=== PATIENT | female | born 1990 | race Caucasian/White ===

== ENCOUNTER → 2021-09-11 12:00 | Outpatient (BNVA) | payer OTHER, SELFPAY | PROVIDERS: PCP Internal Medicine; Visit Provider Physician Assistant Surgical ==

== ENCOUNTER → 2021-10-01 07:30 | Outpatient (BNVA) | payer OTHER, SELFPAY | PROVIDERS: PCP Internal Medicine; Visit Provider Surgery ==

== ENCOUNTER 2021-10-14 07:09 | Outpatient (REF) | payer OTHER, SELFPAY ==
--- NOTE | ~2021-10-14 | XR_ITS ---
EXAMINATION: XR CHEST CLINICAL INFORMATION: Morbid obesity due to excess calories COMPARISON: None TECHNIQUE: 2 views of the chest were obtained. FINDINGS: The lungs are well expanded. There is no focal consolidation, edema, or effusion. No pneumothorax. The cardiomediastinal silhouette is within normal limits. No acute osseous abnormality. XR/XR chest 2V IMPRESSION: No acute pulmonary finding.
[2021-10-14 07:24] LABS: MANUAL DIFF FLAG NO
--- NOTE | 2021-10-14 07:40 | ECG_ITS ---
Test Reason : e66.1 Blood Pressure : / mmHG Vent. Rate : 051 BPM Atrial Rate : 051 BPM P-R Int : 138 ms QRS Dur : 098 ms QT Int : 464 ms P-R-T Axes : -10 019 007 degrees QTc Int : 427 ms Sinus bradycardia Otherwise normal ECG No previous ECGs available Referred By: Rodger Reddy Electronically Signed By:ABDI CABAN
[2021-10-14 07:48] LABS: Basophils Percent Auto 0.3 % (0-2); Eosinophils Absolute Auto 0.3 X10*3/uL (0.0-0.4); Hematocrit 35.3 % (37.0-47.0); Hemoglobin 11.8 g/dl (12.0-16.0); Imm Gran Abs Auto 0.03 X10*3/uL (0.00-0.03); Imm Gran Pct Auto 0.5 % (0.0-0.4); Lymphocytes Absolute Auto 2.9 X10*3/uL (1.2-4.9); Lymphocytes Percent Auto 46.3 % (20-40); Mean Corpuscular HGB Conc 33.4 g/dl (31.0-35.0); Mean Corpuscular Volume 89.8 fL (80.0-98.0); Mean Platelet Volume 9.6 fL (9.4-12.3); Monocytes Absolute Auto 0.4 X10*3/uL (0.1-1.2); Monocytes Percent Auto 6.4 % (2-11); Neutrophils Absolute Auto 2.7 x10*3/uL (2.0-8.3); Neutrophils Percent Auto 42.5 % (45-73); Platelet Count 271 X10*3/uL (160-400); Red Blood Count 3.93 X10*6/uL (4.20-5.50); Red Cell Distribution Width 12.4 % (11.0-16.0); White Blood Count 6.3 X10*3/uL (4.8-10.8)
[2021-10-14 07:49] LABS: Estimated Average Glucose 97 mg/dL
[2021-10-14 08:11] LABS: Alanine Aminotransferase 27 U/L (0-31); Alkaline Phosphatase 57 U/L (39-117); Anion Gap 8 (12-20); Aspartate Amino Transferase 17 U/L (5-31); Bilirubin Total 0.4 mg/dL (0.0-1.0); Blood Urea Nitrogen 13 mg/dL (9-16); C Reactive Protein 0.11 mg/dL (< or = 0.50); Calcium 9.3 mg/dL (8.4-10.2); Carbon Dioxide 26 mmol/L (22-29); Chloride 108 mmol/L (96-108); Cholesterol 130 mg/dL; Estimated Glomerular Filt Rate > 60; Glucose Random 97 mg/dL (60-115); HDL Cholesterol 25 mg/dL; Iron 57 mcg/dL (30-160); LDL Cholesterol Calculated 64 mg/dl; Percent Iron Saturation 16 % (15-50); Potassium 4.1 mmol/L (3.3-5.1); Sodium 138 mmol/L (135-145); Total Iron Binding Capacity 359 mcg/dL (228-428); Total Protein 6.5 g/dL (6.5-8.0); Triglycerides 206 mg/dL; Unsaturated Iron Binding 302 ug/dL
[2021-10-14 08:20] LABS: Ferritin 27 ng/mL (10-122); Insulin 18 uU/mL (2-29); TSH reflex Free T4 1.17 uIU/mL (0.32-4.0); Vitamin D 25-OH Total 25.6 ng/mL (>30)
[2021-10-14 09:03] LABS: Folate > 20.0 ng/mL (> or = 4.0); Vitamin B12 597 pg/mL (200-900)
[2021-10-14 14:00] LABS: H Pylori Breath Test Negative (Negative)
[2021-10-15 13:31] LABS: Calcium (PTHI) 9.4 mg/dL (8.6-10.2); PTHI 21 pg/mL (14-64)
[2021-10-18 03:07] LABS: Zinc 64 mcg/dL (60-130)
[2021-10-18 10:16] LABS: Vitamin B1 16 nmol/L (8-30)
[2021-10-18 19:06] LABS: Vitamin A 58 mcg/dL (38-98)
== END 2021-10-14 07:10 | disposition home or self-care (01) ==
LOC: HO.XRAY 07:09
PROVIDERS: Visit Provider Surgery
DX: E11.9 Type 2 diabetes mellitus without complications (principal); E66.01 Morbid (severe) obesity due to excess calories; I10 Essential (primary) hypertension
CPT/HCPCS: 36415; 71046; 80053; 80061; 82306; 82607; 82728; 82746; 83013; 83036; 83525; 83540; 83970; 84425; 84443; 84590; 84630; 85025; 86140; 93005

== ENCOUNTER → 2021-11-07 08:28 | Outpatient (BNVA) | payer OTHER, SELFPAY | PROVIDERS: PCP Internal Medicine; Visit Provider Dietitian, Registered | DX: E66.01 Morbid (severe) obesity due to excess calories (principal); Z68.41 Body mass index [BMI] 40.0-44.9, adult; E11.9 Type 2 diabetes mellitus without complications; Z71.3 Dietary counseling and surveillance | CPT/HCPCS: 97802 ==

== ENCOUNTER → 2021-11-08 07:30 | Outpatient (BNVA) | payer OTHER, SELFPAY | PROVIDERS: PCP Internal Medicine; Visit Provider Surgery ==

== ENCOUNTER → 2021-12-04 10:43 | Outpatient (BNVA) | payer OTHER, SELFPAY | PROVIDERS: PCP Internal Medicine; Visit Provider Physician Assistant ==

== ENCOUNTER → 2021-12-11 08:16 | Outpatient (BNVA) | payer OTHER, SELFPAY | PROVIDERS: PCP Internal Medicine; Visit Provider Surgery ==

== ENCOUNTER 2021-12-16 07:54 | Outpatient (REF) | payer OTHER, SELFPAY ==
--- NOTE | ~2021-12-16 | US_ITS ---
EXAMINATION: US COMPLETE ABDOMEN WITH LIVER ELASTOGRAPHY CLINICAL INFORMATION: Obesity COMPARISON: None. TECHNIQUE: Real-time imaging of the abdominal viscera. Noninvasive ultrasound liver fibrosis assessment is performed using Lore ElastPQ point quantification shear wave elastography (2D-SWE) with a C5-2 MHz transducer. Multiple elastography samples are obtained. FINDINGS: PANCREAS: Not well visualized due to bowel gas ABDOMINAL AORTA: Not well visualized due to bowel gas INFERIOR VENA CAVA: Visualized portions are normal. LIVER: Normal. The liver demonstrates normal size, contour and echogenicity. No focal lesion or intrahepatic biliary duct dilatation. The right lobe measures 18 cm in length. The left lobe measures 12 cm in length. Portal flow is normal/hepatopedal Shear wave liver elastography median stiffness is 1.2 m/s (reference: normal median stiffness is 1.3 m/s or less). IQR/median stiffness to assess sampling precision is 0.18 (reference: good quality data set is IQR/median stiffness of 0.15 or less). GALLBLADDER: The gallbladder is normal in size. There are small echogenic densities adjacent to the gallbladder wall but do not or shadow probably representing small gallbladder wall polyps. The largest measures 6 mm near the neck of the gallbladder. No definite gallstones are seen. The gallbladder wall is normal. COMMON BILE DUCT: Not well visualized due to bowel gas RIGHT KIDNEY: Normal. No hydronephrosis. No renal calculi or focal parenchymal lesions. The kidney measures 11 cm in maximum dimension. LEFT KIDNEY: Normal. No hydronephrosis. No renal calculi or focal parenchymal lesions. The kidney measures 11 cm in maximum dimension. SPLEEN: Normal. The spleen measures 12 cm in maximum dimension. FREE FLUID: None. US/US abdomen comp w elastography IMPRESSION: 1. Impression: Limited exam due to bowel gas. The pancreas, aorta and common bile duct are not well seen. Probable gallbladder wall polyps, largest measuring 6 mm. Ultrasound follow-up in 6-12 months recommended. 2. Liver elastography: Slightly limited due to sampling error. Liver stiffness is not elevated. REFERENCE: Society of Radiologists in Ultrasound Liver Stiffness Thresholds (2020): LIVER STIFFNESS THRESHOLDS: *Liver Stiffness equal or less than 1.3 m/s: High probability of being normal. *Liver Stiffness less than 1.7 m/s: In the absence of other known clinical signs, rules out compensated advanced chronic liver disease. *Liver Stiffness 1.7-2.1 m/s: Suggestive of compensated advanced chronic liver disease but need further test for confirmation. *Liver Stiffness over 2.1 m/s: Rules in compensated advanced chronic liver disease. *Liver Stiffness over 2.4 m/s: Suggestive of clinically significant portal hypertension. QUALITY OF DATA SET: *IQR/Median value equal or less than 0.15 implies a quality data set. *IQR/Median value over 0.15 implies a poor quality data set. SIGNIFICANT CHANGE FROM PRIOR EXAM: Significant change if liver stiffness measurement is 10% or greater from prior exam. OTHER CONSIDERATIONS: The stage of liver fibrosis may be overestimated in the setting of acute hepatitis, liver inflammation, elevated liver function tests, hepatic vascular congestion, obstructive cholestasis, non-fasting state, and infiltrative diseases such as amyloidosis and lymphoma. In some patients with NAFLD, the liver stiffness thresholds for compensated advanced chronic liver disease may be lower. In causes other than viral hepatitis and NAFLD, liver stiffness thresholds are not well established.
--- NOTE | ~2021-12-16 | FL_ITS ---
EXAMINATION: XR FLUOROSCOPY UPPER GI WITH AIR CLINICAL INFORMATION: Obesity. COMPARISON: None. TECHNIQUE: Upper GI was performed using thin and thick barium and effervescent granules. FINDINGS: Esophageal motility is normal. No gastroesophageal reflux or hernia is seen. The stomach and duodenum are normal appearing. No fold thickening, mass, stricture or ulcer is seen. FLUOROSCOPY TIME: 0.5 minutes DOSE AREA PRODUCT: 5 Gy-cm2 SAVED IMAGES: 23 saved fluoroscopic images and 2 overhead images. FL/FL upper GI w air IMPRESSION: Unremarkable examination.
== END 2021-12-16 07:55 | disposition home or self-care (01) ==
LOC: HO.US 07:54
PROVIDERS: Visit Provider Surgery
DX: E66.01 Morbid (severe) obesity due to excess calories (principal); E11.9 Type 2 diabetes mellitus without complications; I10 Essential (primary) hypertension
CPT/HCPCS: 74246; 76705; 76981

== ENCOUNTER → 2021-12-30 10:28 | Outpatient (BNVA) | payer OTHER, SELFPAY | PROVIDERS: PCP Internal Medicine; Visit Provider Surgery | DX: Z13.89 Encounter for screening for other disorder (principal) ==

== ENCOUNTER → 2021-12-31 10:03 | Outpatient (BNVA) | payer OTHER, SELFPAY | PROVIDERS: PCP Internal Medicine; Visit Provider Surgery | DX: Z13.89 Encounter for screening for other disorder (principal) ==

== ENCOUNTER 2022-01-01 06:02 | Day surgery (SDC) | payer OTHER, SELFPAY ==
[2021-12-27 14:18] VITALS: BMI 38.7
--- NOTE | 2021-12-28 00:03 | MHC.SHP ---
Pre-Procedural Eval Section A Date of Service: 12/28/21 The patient is an INPATIENT: No The History & Physical has been completed within 30 days and I have reviewed it.: Yes Section B Chief Complaint: obesity Relevant Family History (Specify if Yes): No Relevant Social History: None Present Medications: None Medical History: No relevant PMH History of Previous Operations: No relevant previous surgery Allergies: Allergies Allergy/AdvReac Type Severity Reaction Status Date / Time No Known Allergies Allergy Verified 12/27/21 14:17 Review of Systems Sugical H&P ROS: Negative: Constitution, Cardiovascular, Respiratory, Neurological, Psychiatric, Hem-Onc, Allergic/Immunologic, Gastrointestinal, Genitourinary, Musculoskeletal, Integumentary, Endocrine and Eyes/Ears/Nose/Throat Exam Surgical H&P Exam: Normal: HEENT, Normal: Heart, Normal: Lungs, Normal: Extremities, Normal: Abdomen, Normal: Skin and Normal: Neurological Plan Diagnosis/Plan: Unchanged I have reviewed the history and physical and performed a pertinent physical examination on my patient. No changes have occurred unless specified.
[2021-12-30 10:21] LABS: MANUAL DIFF FLAG NO
[2021-12-30 10:48] LABS: Basophils Percent Auto 0.2 % (0-2); Eosinophils Absolute Auto 0.1 X10*3/uL (0.0-0.4); Eosinophils Percent Auto 1.4 % (0-4); Hematocrit 40.3 % (37.0-47.0); Hemoglobin 13.3 g/dl (12.0-16.0); Imm Gran Abs Auto 0.01 X10*3/uL (0.00-0.03); Imm Gran Pct Auto 0.2 % (0.0-0.4); Lymphocytes Absolute Auto 1.8 X10*3/uL (1.2-4.9); Lymphocytes Percent Auto 35.5 % (20-40); Mean Corpuscular Hemoglobin 30.2 pg (27.0-33.0); Mean Corpuscular Volume 91.4 fL (80.0-98.0); Mean Platelet Volume 10.3 fL (9.4-12.3); Monocytes Absolute Auto 0.3 X10*3/uL (0.1-1.2); Neutrophils Absolute Auto 2.8 x10*3/uL (2.0-8.3); Neutrophils Percent Auto 56.7 % (45-73); Platelet Count 229 X10*3/uL (160-400); Red Blood Count 4.41 X10*6/uL (4.20-5.50); Red Cell Distribution Width 11.9 % (11.0-16.0)
[2021-12-30 10:54] LABS: Estimated Average Glucose 94 mg/dL; Hemoglobin A1c % 4.9 %
[2021-12-30 10:58] LABS: INTERNATIONAL NORM RATIO 1.1 (0.9-1.1); Prothrombin Time 12.9 SEC (9.9-13.0)
[2021-12-30 11:01] LABS: Partial Thromboplastin Time 44.2 SEC (24.1-38.0)
[2021-12-30 11:16] LABS: Alanine Aminotransferase 18 U/L (0-31); Albumin Level 4.1 g/dL (3.5-5.0); Alkaline Phosphatase 55 U/L (39-117); Anion Gap 10 (12-20); Aspartate Amino Transferase 12 U/L (5-31); Bilirubin Total 1.1 mg/dL (0.0-1.0); Blood Urea Nitrogen 14 mg/dL (9-16); C Reactive Protein 0.17 mg/dL (< or = 0.50); Calcium 9.7 mg/dL (8.4-10.2); Carbon Dioxide 26 mmol/L (22-29); Chloride 106 mmol/L (96-108); Cholesterol 143 mg/dL; Creatinine Clr Calc Pharmacy 115.2; Estimated Glomerular Filt Rate > 60; Glucose Random 84 mg/dL (60-115); HDL Cholesterol 26 mg/dL; LDL Cholesterol Calculated 98 mg/dl; Potassium 4.1 mmol/L (3.3-5.1); Sodium 138 mmol/L (135-145); Total Protein 6.8 g/dL (6.5-8.0); Triglycerides 98 mg/dL
[2021-12-30 11:43] LABS: Insulin 9 uU/mL (2-29); TSH reflex Free T4 0.87 uIU/mL (0.32-4.0)
--- NOTE | 2021-12-31 08:14 | P.CONAN_ITS ---
Documented by User: Alexia Chairez NP 12/31/21 08:16 HPI - Anesthesia Eval Consult details Narrative: 31yo F for Gastrectomy Sleeve,EGD,poss diaphragmatic hernia,poss ventral hernia,poss open PMFSH Active Problems Active Problems: All Active Problems (Updated 12/11/21 @ 13:22 by Rodger Reddy MD) BMI 39.0-39.9,adult (Acute) Obesity (Acute) Iron deficiency (Acute) Nephrolithiasis (Acute) Non-insulin dependent type 2 diabetes mellitus (Acute) Hypertension (Acute) Morbid obesity (Acute) Past Medical History Medical History Hypertension Morbid obesity Nephrolithiasis Obesity Family History Family History (Updated 09/25/21 @ 13:38 by LUKE Ibrahim) Mother Hypertension Migraines Father Hypertension Diabetes Brother Bipolar 1 disorder Surgical History Surgical History Hx of wisdom tooth extraction Social History Social History (Updated 09/25/21 @ 13:39 by LUKE Ibrahim) Are you a primary acute care occupational therapist to a significant other at home: No Do you presently have visiting nurse or other home services: No Alcohol intake: current Alcohol intake frequency: holidays/special occasions only Patient Tobacco Use Status: Never used Tobacco Have you been hit, kicked, punched, or otherwise hurt by someone within the past year? If so, by whom?: No Are you DNR?: No Advance Directives: No Advance Directives Information Provided: Yes Advance Directives on File: No Recently lost weight without trying: No Patient : No FDLMP: 12/13/2021 : No Poor oral hygiene: No Meds Allergies Allergy/AdvReac Type Severity Reaction Status Date / Time No Known Allergies Allergy Verified 01/01/22 06:16 Home Medications Medication Instructions Recorded Confirmed Last Taken Type cholecalciferol (vitamin D3) 50 50 mcg PO DAILY 09/25/21 12/27/21 Unknown History mcg (2,000 unit) capsule multivitamin 1 tab PO DAILY 09/25/21 12/27/21 Unknown History Exam Exam Date and Time: December 31, 2021 0814 Height,Weight and Vital Signs: Height 5 ft 7 in Weight 112.037 kg Pertinent Lab Results Pertinent Lab Results: Laboratory Tests 12/30/21 12/30/21 12/30/21 10:20 10:20 10:20 WBC 5.0 RBC 4.41 Hgb 13.3 Hct 40.3 MCV 91.4 MCH 30.2 MCHC 33.0 RDW 11.9 Plt Count 229 MPV 10.3 Immature Gran % (Auto) 0.2 Neut % (Auto) 56.7 Lymph % (Auto) 35.5 Luna % (Auto) 6.0 Eos % (Auto) 1.4 Baso % (Auto) 0.2 Lymph # (Auto) 1.8 Luna # (Auto) 0.3 Eos # (Auto) 0.1 Baso # (Auto) 0.0 Abs Immat Gran (auto) 0.01 Absolute Neuts (auto) 2.8 Absolute Nucleated RBC 0.000 Nucleated RBC % (auto) 0.0 PT 12.9 INR 1.1 APTT 44.2 H Sodium 138 Potassium 4.1 Chloride 106 Carbon Dioxide 26 Anion Gap 10 L BUN 14 Creatinine 0.93 Estim Creat Clear Calc 115.2 Estimated GFR > 60 Random Glucose 84 Estimat Average Glucose Hemoglobin A1c % Insulin Level 9 Calcium 9.7 Total Bilirubin 1.1 H AST 12 ALT 18 Alkaline Phosphatase 55 C-Reactive Protein 0.17 Total Protein 6.8 Albumin 4.1 Triglycerides 98 Cholesterol 143 LDL Cholesterol, Calc 98 HDL Cholesterol 26 TSH 0.87 Blood Type Antibody Screen 12/30/21 12/30/21 10:20 10:20 WBC RBC Hgb Hct MCV MCH MCHC RDW Plt Count MPV Immature Gran % (Auto) Neut % (Auto) Lymph % (Auto) Luna % (Auto) Eos % (Auto) Baso % (Auto) Lymph # (Auto) Luna # (Auto) Eos # (Auto) Baso # (Auto) Abs Immat Gran (auto) Absolute Neuts (auto) Absolute Nucleated RBC Nucleated RBC % (auto) PT INR APTT Sodium Potassium Chloride Carbon Dioxide Anion Gap BUN Creatinine Estim Creat Clear Calc Estimated GFR Random Glucose Estimat Average Glucose 94 Hemoglobin A1c % 4.9 Insulin Level Calcium Total Bilirubin AST ALT Alkaline Phosphatase C-Reactive Protein Total Protein Albumin Triglycerides Cholesterol LDL Cholesterol, Calc HDL Cholesterol TSH Blood Type O Positive Antibody Screen NEGATIVE Narrative Narrative: EKG 10/2021 Vent. Rate : 051 BPM ? ? Atrial Rate : 051 BPM ?? P-R Int : 138 ms? QRS Dur : 098 ms ? ? QT Int : 464 ms ? ? ? P-R-T Axes : -10 019 007 degrees ?? QTc Int : 427 ms ? Sinus bradycardia Otherwise normal ECG No previous ECGs available Assessment and Plan Assessment Anesthesia Assessment: Chart Reviewed Documented by User: Gladis Soliman MD 01/01/22 07:54 PMFSH Past Medical History Medical History Hypertension Morbid obesity Nephrolithiasis Obesity Family History Family History (Updated 09/25/21 @ 13:38 by LUKE Ibrahim) Mother Hypertension Migraines Father Hypertension Diabetes Brother Bipolar 1 disorder Family history of problems with anesthesia: No Surgical History Surgical History Hx of wisdom tooth extraction History of Problems with Anesthesia: No Social History Social History (Updated 09/25/21 @ 13:39 by LUKE Ibrahim) Are you a primary acute care occupational therapist to a significant other at home: No Do you presently have visiting nurse or other home services: No Alcohol intake: current Alcohol intake frequency: holidays/special occasions only Patient Tobacco Use Status: Never used Tobacco Have you been hit, kicked, punched, or otherwise hurt by someone within the past year? If so, by whom?: No Are you DNR?: No Advance Directives: No Advance Directives Information Provided: Yes Advance Directives on File: No Recently lost weight without trying: No Patient : No FDLMP: 12/13/2021 : No Poor oral hygiene: No Meds Allergies Allergy/AdvReac Type Severity Reaction Status Date / Time No Known Allergies Allergy Verified 01/01/22 06:16 Home Medications Medication Instructions Recorded Confirmed Last Taken Type cholecalciferol (vitamin D3) 50 50 mcg PO DAILY 09/25/21 12/27/21 Unknown History mcg (2,000 unit) capsule multivitamin 1 tab PO DAILY 09/25/21 12/27/21 Unknown History Exam Airway Mallampati Class: III TM Dist: >3cm Neck ROM: Full Assessment and Plan Assessment Anesthesia Assessment: Anesthesia Plan Discussed Final Anesthetic Review Family History of Problems with Anesthesia: No History of Problems with Anesthesia: No NPO: Yes ASA Class: III Final Preanesthetic Review: No Changes in Pt Med Stat, Meds/Allgs Chart Reviewed, Consent Obtained/Reviewed and Anes Risks/Benef Reviewed Patient Risk: Intermediate Procedure Risk: Intermediate Anesthetic Plan Anesthetic Plan: GA Disposition: Standard PACU
[2021-12-31 13:55] LABS: COVID-19 Test Negative (Negative); IDNOW Serial# 55D5AD1C
[2022-01-01] VITALS (14 sets, daily range): BP systolic 119–145; BP diastolic 62–90; PULSE 2–62; RESP 12–18; TEMP 36.3–37.3; O2SAT 96–100
[2022-01-01 06:37] LABS: UPreg QC Valid YES; Urine Pregnancy NEGATIVE (NEGATIVE)
[2022-01-01 06:39] LABS: Glucose, Whole Blood 73 mg/dL (60-115)
[2022-01-01] MEDS: Lactated Ringers 1,000 ML 999 ML IV (06:50)
[2022-01-01] MEDS: Lactated Ringers 1,000 ML 100 ML IVCONT ×3 (06:50→21:47)
[2022-01-01] MEDS: ceFAZolin Sodium/Dextrose,Iso 2 GM/50 ML PIGGYBACK IV ×2 (07:53→14:14)
--- NOTE | 2022-01-01 10:01 | PM.OP ---
Brief Operative Note Date of Service: 01/01/22 Pre-op diagnosis: Severe obesity with comorbidities Post-op diagnosis: same Procedure: INITIAL PATIENT BMI ON PRESENTATION AT OUR OFFICE: 44.9 kg/m2 LAST BMI BEFORE SURGERY: 38.7 kg/m2 COMORBIDITIES: hypertension, nephrolithiasis, non-insulin dependent diabetes ?The patient presented to the Weight Management Program with significant obesity that was negatively impacting the patient's comorbidities as listed above.? The program is a phased program with a special focus on preoperative medical weight management to promote substantial weight loss and prepare the patients for the second phase of the program: bariatric surgery. The patient participated in an intensive weekly lifestyle ?intervention and exercise program during which the patient ?has lost between the initial office visit and the last preoperative visit 39.9 lbs, or 13.9% of initial actual body weight. It was deemed appropriate for the patient to now have bariatric surgery. In light of the current Covid-19 pandemic and the well documented strong association of obesity and increased risk of worse outcomes if infected with Covid-19 (REFERENCES:https://pubmed.ncbi.nlm.nih.gov/92833972/,?https://pubmed.ncbi.nlm.nih.gov/04846496/), any delay in undergoing bariatric surgery may lead to the patient's worsening health condition and increased?risk of more severe Covid-19 disease if infected. In addition a recent?study from [facility] published in [employer] [facility] on 09/30/2021 ([email or web address]) found that, among patients with obesity, substantial weight loss achieved with surgery was associated with improved outcomes of COVID-19 infection. The findings suggest that obesity can be a modifiable risk factor for the severity of COVID-19 infection. In addition, the patient met the BMI-criteria for bariatric surgery based on the BMI on initial presentation. The patient should not be penalized for achieving such weight loss because ?it is not sustainable long-term without surgical intervention and it was achieved in preparation for bariatric surgery ?under my direction and based on my published research ([email or web address] and?[email or web address].soard.org/article/[email or web address])12677-X/pdf) ?that a 10% preoperative weight loss improves long-term weight loss after surgery and reduces perioperative complications.? Insurance carriers such as [facility] have endorsed my recommendations ?and have included in their policies criteria to include a 10% preoperative weight loss requirement. PROCEDURE: Esophago-gastroscopy, laparoscopic sleeve gastrectomy and laparoscopic gastropexy INDICATIONS: This is a 31 year-old female who was electively scheduled for laparoscopic, possibly open sleeve gastrectomy. The risks and complications of the procedure were discussed with the patient in advance, particularly the possibility of ; pulmonary embolism; staple line leak; bleeding; GERD; cardiac, pulmonary, or renal complications; as well as long-term problems such as insufficient weight loss, vitamin deficiency, strictures, or ulcers. The patient understood all the risks, and was in agreement to proceed with surgery. DESCRIPTION OF PROCEDURE: After informed consent was obtained from the patient, the patient was given preoperative antibiotics, and was transferred to the operating room. After successful induction of general anesthesia, pneumatic compression devices were placed on both lower extremities. An upper endoscopy was performed next. The oropharynx and esophagus appeared to be within normal limits. There was no diaphragmatic hernia present consistent with the findings of the preoperative upper GI. The stomach was entered. Then after all fluid and air were suctioned and the stomach was fully decompressed, the scope was withdrawn and secured in the mid esophagus. The patient was then prepped and draped in the usual sterile manner, and abdominal access was established at the right upper quadrant with the Rad technique. A 12 mm blunt port was inserted, and the abdomen was insufflated with CO2 to a pressure of 15 mmHg. Under direct visualization, additional ports were placed, specifically two 5 mm Versi-step ports to the left upper quadrant, and a 5 mm Versi-Step port to the right upper quadrant. 1% lidocaine plain was used to infiltrate all port sites as well as all fascia defects. Following that, the patient was placed in a steep reverse Trendelenburg position. An additional 5 mm port was placed to the right flank for the Mediflex retractor that was used to retract the left lobe of the liver. The gastro-esophageal fat pad was opened with the ultrasonic device (Thsandraerbeat, Olympus) and the anterior esophagus and hiatus were exposed. The angle of His was opened with the ultrasonic device the fundus of the stomach from any diaphragmatic and splenic attachments. I then opened the gastrocolic ligament between the transverse colon and the greater curvature of the stomach with the ultrasonic device to enter the lesser sac and facilitate the ligation of the short gastric vessels. I started at a mid-point along the greater curvature and using the Thunderbeat, all short gastric vessels were divided all the way to the angle of His until the left sandeep was completely dissected at its entirety. I then divided the gastro-colic ligament distally to a distance of about 3-4 cm proximal to the pylorus. The stomach was then divided transversely with one Endo LEENA-45 purple, one LEENA-45 orange load and four LEENA-60 articulating orange loads using the AEON stapler and loads. Every effort was made that the gastric sleeve had a tubular shape and an even caliber throughout. Once the sleeve resection was completed, the staple line of the gastric sleeve was reinforced with Hemoclips. The resected stomach was retrieved without difficulty from the Rad port. A gastropexy was then performed in order to prevent postoperative GERD and partial gastric volvulus. Several interrupted 2.0 Surgidac sutures were placed between the sleeve's staple line and the previously divided greater omentum and gastro-colic ligament using the Endo-Stitch device. ?An upper endoscopy was performed. There was no narrowing at the GE junction. The scope was easily advanced all the way to the pylorus which was clearly visualized. There was no narrowing anywhere and the sleeve's caliber was even throughout. The sleeve's staple line was inspected and there was no evidence of ischemia, bleeding or dehiscence. At that point the gastroscope was withdrawn from the patient?s mouth while we were decompressing the bowel and the stomach from any remaining air. I looked into the lesser sac to see how the sleeve was situating and it was situating well. There was no bleeding from the staple line, spleen, or short gastric vessels. The Mediflex retractor was removed, and the undersurface of the liver was inspected and there was no bleeding. The patient was placed in supine position. I closed the fascial defect of the 12 mm port site with a figure of eight #1 Polysorb suture. Then 100 cc 0.25 % Marcaine plain with 10 mg of Dexamethasone were used to infiltrate the fascial closure as well as all skin incisions. At this point, the abdomen was deflated, all ports were removed under direct vision, and no bleeding was noted from any of the port sites. The skin incisions were irrigated with saline and were closed with 4-0 absorbable monofilament sutures. Steri-Strips and OpSites were used to cover all incisions. The patient was extubated and was transferred in stable condition to the recovery room for further care. I was present and performed all wasserman parts of the procedure. Mr Johnson was the airplane first officer. There were no residents to assist with this case. Riky Reddy MD, PhD, FACS Surgeon: Rodger Reddy MD Anesthesia: GETA, local and other (TAP block) Was an Mixer Attendant used for this Procedure?: Yes Mixer Attendant: Bg Johnson Estimated blood loss (mL): 10 IV fluids (mL): 2,500 Urine output (mL): 0 (No Carter to gravity) Pathology: other (Stomach) Condition: stable Disposition: PACU
--- NOTE | 2022-01-01 10:06 | PM.DS ---
DS: Providers Provider Date of Service: 01/02/22 Primary care physician: Unknown Physician DS: Summary Hospital Course Hospital Course: ADMITTING DIAGNOSIS: morbid obesity, HTN, ? DISCHARGE DIAGNOSIS: same, s/p laparoscopic sleeve gastrectomy ? PAST SURGICAL HISTORY: ? PROCEDURE: upper endoscopy, laparoscopic sleeve gastrectomy ? DISCHARGE SUMMARY: ? History of Present Illness: ? The patient is a?31 year-old woman with a BMI of?44.9 kg/m2 and associated co-morbidities as described above. The patient had extensive work-up,lost?35.4 lbs preoperatively and was electively scheduled for laparoscopic, possible open sleeve gastrectomy and gastropexy. Risks and complications of the surgery were discussed with the patient in advance, particularly the possibility of , pulmonary embolism, anastomotic leak, bleeding, bowel injury, GERD, cardiac, renal or pulmonary complications. The patient understood all the risks and was in agreement with the surgical plan. ? Hospital Course: ? The patient underwent an uneventful laparoscopic sleeve gastrectomy with gastropexy on the day of admission. Postoperatively, the patient was transferred to the surgical floor. The patient received IV Acetaminophen and IV dilaudid for pain control. Patient was started on bariatric phase 1 diet POD #0. On postoperative day one, the patient was feeling well without nausea, vomiting, fevers, or tachycardia. The patient had some mild incisional pain and the abdomen was soft. ? On the morning of postoperative day one, the patient was continued on 1 ounce of water or ice every half hour. During the day, the patient did fairly well, having some incisional pain, but able to ambulate adequately and to tolerate liquids well. ? Since the patient is doing well, we decided that the patient was ready to be discharged. The patient was given instructions to follow-up with me next week and to call my office for any fever over 101, persistent abdominal pain, nausea, vomiting, GERD, symptoms of DVT such as calf tenderness, or leg swelling, or pulmonary embolism such as chest pain or shortness of breath. The patient was also instructed to drink 40-60 ounces of liquids per day using the 1-ounce cups. The patient had been given prescriptions for Tylenol for pain, Zofran prn for nausea, and pantoprazole and carafate previously. The patient was encouraged to ambulate and use the incentive spirometer. The patient was allowed to shower, but no baths, and encouraged to stay active at home. All of these instructions were given to the patient personally. All questions were answered and the patient understood all instructions, the instructions were also given to the patient in print. Time Spent with Patient Time attestation: Total time spent providing and/or coordinating discharge services: Discharge coordination time: Less than 30 minutes Quality: Stroke Does the patient have a stroke diagnosis?: No Physical Exam Vital Signs: Vital Signs: Last Vital Signs Temp 97.6 F 01/01/22 10:01 Pulse 59 01/01/22 10:01 Resp 12 01/01/22 10:01 BP 145/79 H 01/01/22 10:01 Pulse Ox 100 01/01/22 10:01 BMI result Body Mass Index 38.7 DS: Data Data Completed and Pending Pending studies at discharge: Pending at discharge 01/01/22 09:17 Surgical [PTH] Routine Labs on day of discharge: Laboratory Results - last 24 hr 12/31/21 01/01/22 01/01/22 13:30 06:15 06:35 POC Glucose 73 Urine Test NEGATIVE COVID-19 ([facility]) Negative COVID-19 Clin Com See Note Discharge Plan Discharge Patient Disposition: Home, Self-Care Referrals: Physician,Unknown J [Primary Care Provider] - 1 Week Discharge Medications: Continued pantoprazole 40 mg tablet,delayed release (DR/EC) 40 mg PO DAILY Qty: 30 2RF sucralfate 100 mg/mL suspension 10 ml PO BID Qty: 400 2RF ondansetron HCl 4 mg tablet 4 mg PO Q12H Qty: 20 0RF Discontinued Vitron-C 65 mg iron- 125 mg tablet,delayed release (DR/EC) 1 tab PO DAILY Qty: 30 2RF Rx Instructions: swallow whole; do not chew/break/dissolve/open multivitamin Tablet 1 tab PO DAILY 0RF cholecalciferol (vitamin D3) 50 mcg (2,000 unit) capsule 50 mcg PO DAILY 0RF polyethylene glycol 3350 [Miralax] 17 gram powder in packet 17 g PO DAILY Qty: 14 0RF Rx Instructions: Mix each packet with 8oz of water and do 7 packets 2 days prior to surgery date and another 7 packets one day prior to surgery date Discharge Orders: Discharge Order (Routine); Ordered 01/02/22 Ordered By: Rodger Reddy Activity Restrictions/Additional Instructions: No tub baths, sex or returning to work until discussed at first post op appointment. No exercise, alcohol, tobacco or illegal drug use. Continue to use incentive spirometer hourly while awake. Walk in home for 5- 10 minutes every 2 hours during the first week. Follow all instructions in the bariatric handbook and call with any questions.Discharge Instructions 1. Please call your doctor or come back to the emergency room should any new symptoms arise. 2. You will receive a courtesy call from [facility] 24-48 hours after discharge. 3. Activity: abstain from alcohol, practice limited stair climbing, no bending, no driving, no exercise, no illicit substances, no lifting, no sex, no tub bath, no work. 4. Diet: continue as discussed with Dr. Reddy. 5. Dressing Change/Wound Care: Your incision is covered by clear bandages and guaze underneath. If the area is tender, you may apply an ice pack for short intervals (no more than 20 minutes on, followed by at least 20 minutes off). Do not apply heat. Do not use creams, lotions, or topical antibiotics unless instructed to do so by your surgeon. These can cause infection or allergic reaction. 6. Call your doctor if: - Your temperature exceeds 101.5 F - You experience excessive pain or swelling - You have an unexpected reaction to medication - You have excessive bleeding - You experience continued vomiting/nausea - Your incision begins to separate - Your incision shows signs of infection such as increased redness, swelling, excessive pain, heat, or drainage (light blood or clear fluid is normal) 7. General instructions: No lifting greater than 5 lbs for the next 4 weeks[address] driving within 24 hours of taking narcotic pain medications. If you do not move your bowels in the next 2 days, please take milk of magnesia over the counter. Please follow the post op diet and do not advance your diet until you are seen in the office in about 2 weeks. Please walk around your home every hour or two to prevent blood clots from forming in your legs. You do not need to wake from sleeping to walk. Please sleep in a bed or couch to prevent kinking at the hips and knees. Please take your incentive spirometer (your lung tank car loader) home with you and use it for the next few days to prevent pneumonias. You may shower, no hot tubs, baths or swimming pools. Please call the office with any questions or concerns such as increasing abdominal pain, fever, chills, shortness of breath, chest pain, leg pain or swelling, or redness or drainage from your incisions. Please stay on stage 3 diet which includes sugar free clear liquids such as ice pops and jello and broth and crystal light. Avoid all carbonation. Please drink 3 protein shakes with at least 25-30 grams of protein daily or 3 of the Celebrate 4:1 shakes which can be purchased in our office. The Celebrate shakes have all of the bariatric vitamins you need if you consume these shakes. If you are drinking other protein shakes, you will need to purchase the Celebrate multivitamins and calcium that we provide in the office (they will provide all the vitamins you need). Please make sure you are consuming at least 40-60 ounces of water in addition to your 3 protein shakes daily. Do not hesitate to contact the office with any questions at . The patient's medical history has been reviewed and they are considered low risk for post op DVT and therefore DVT prophylaxis is not considered necessary. Travel after surgery was reviewed. The patient has not disclosed any travel plans during the first 30 days after surgery and they have been advised that within the first 30 days after surgery any bus, plane, train or car travel over 2 hours in duration is contraindicated due to the possibility of developing blood clots from immobility. Any travel, needs to include periods of ambulation of 10 minutes in duration every 2 hours.? The patient was instructed to discuss any plans for travel during this period with their bariatric surgeon. Discharge Date/Time: 01/02/22 09:55
--- NOTE | 2022-01-01 10:09 | PM.PNGS ---
Subjective Subjective Date of Service: 01/02/22 Interval history: Patient has mild incisional pain, but was able to ambulate and use the incentive spirometer. She is tolerating phase 1 bariatric diet Physical Exam Vital Signs: Vital Signs: Last Vital Signs Temp 97.6 F 01/01/22 10:01 Pulse 56 01/01/22 10:06 Resp 14 01/01/22 10:06 BP 134/84 01/01/22 10:06 Pulse Ox 100 01/01/22 10:06 BMI result Body Mass Index 38.7 GI: Inspection: Yes normal to inspection, Yes incision (clean, dry and intact) and Yes obesity Extrem: Right lower extremity: normal to inspection (no calf tenderness) Left lower extremity: normal to inspection (no calf tenderness) Objective Data Active Medications Famotidine (Famotidine/Pf 20 Mg/2 Ml Vial) 20 mg IVPUSH BID DARRION Hydromorphone HCl (Hydromorphone Hcl 0.5 Mg/0.5 Ml Syringe) 0.5 mg IVPUSH Q5M PRN; Protocol PRN Reason: Pain, Severe (Pain Scale 7-10) Lactated Ringer's (Lr) 1,000 mls @ 100 mls/hr IVCONT .Q10H DARRION Last Admin: 01/01/22 06:50 Dose: 100 mls/hr Documented by: MEEK Metoclopramide HCl (Metoclopramide Hcl 10 Mg/2 Ml Vial) 10 mg IVPUSH Q6H PRN PRN Reason: Nausea Ondansetron HCl (Ondansetron Hcl 4 Mg/2 Ml Vial) 4 mg IVPUSH ONCE PRN PRN Reason: Nausea and Vomiting Labs CBC & Chem 7: 01/02/22 06:08 01/02/22 06:08 Labs: Laboratory Results - last 24 hr 12/31/21 01/01/22 01/01/22 13:30 06:15 06:35 POC Glucose 73 Urine Test NEGATIVE COVID-19 ([facility]) Negative COVID-19 Clin Com See Note Procedures Date of Service Date of Service: 01/02/22 Progress Note: A&P Assessment and plan (1) S/P laparoscopic sleeve gastrectomy: Status: Acute Assessment and Plan: s/p laparoscopic sleeve gastrectomy and gastropexy Doing well Check am labs. If OK, will discharge home? (2) Obesity: Status: Acute (3) BMI 39.0-39.9,adult: Status: Acute Fall Risk Details Current Medications: Current Medications Famotidine (Famotidine/Pf 20 Mg/2 Ml Vial) 20 mg IVPUSH BID DARRION Hydromorphone HCl (Hydromorphone Hcl 0.5 Mg/0.5 Ml Syringe) 0.5 mg IVPUSH Q5M PRN; Protocol PRN Reason: Pain, Severe (Pain Scale 7-10) Lactated Ringer's (Lr) 1,000 mls @ 100 mls/hr IVCONT .Q10H DARRION Last Admin: 01/01/22 06:50 Dose: 100 mls/hr Documented by: Metoclopramide HCl (Metoclopramide Hcl 10 Mg/2 Ml Vial) 10 mg IVPUSH Q6H PRN PRN Reason: Nausea Ondansetron HCl (Ondansetron Hcl 4 Mg/2 Ml Vial) 4 mg IVPUSH ONCE PRN PRN Reason: Nausea and Vomiting Time Spent With Patient Time: Total time spent is greater than 50% in coordination of care (as documented) at patient's floor/unit and/or counseling patient: Quality Stroke Does the patient have a stroke diagnosis?: No VTE Prior VTE?: No VTE Risk Level:: Surgical - moderate VTE Device Contraindication: N/A - Device Ordered VTE Drug Contraindication: Treatment Not Indicated
[2022-01-01] MEDS: Famotidine/PF 20 MG/2 ML VIAL IVPUSH ×2 (10:13→21:47)
[2022-01-01 10:29] LABS: Hematocrit 38.3 % (37.0-47.0); Hemoglobin 12.8 g/dl (12.0-16.0)
[2022-01-01 10:52] LABS: Anion Gap 14 (12-20); Blood Urea Nitrogen 9 mg/dL (9-16); Calcium 9.1 mg/dL (8.4-10.2); Carbon Dioxide 22 mmol/L (22-29); Chloride 105 mmol/L (96-108); Creatinine Clr Calc Pharmacy 111.6; Estimated Glomerular Filt Rate > 60; Glucose Random 144 mg/dL (60-115); Potassium 3.9 mmol/L (3.3-5.1); Sodium 137 mmol/L (135-145)
[2022-01-01] MEDS: Metoclopramide HCl 10 MG/2 ML VIAL IVPUSH ×2 (10:57→17:27)
[2022-01-01] MEDS: ondansetron HCL 4 MG/2 ML VIAL IVPUSH ×2 (13:32→21:47)
[2022-01-01] MEDS: 0.9 % Sodium Chloride Flush 3 ML SYRINGE IVFLUSH (21:47)
[2022-01-02 04:00] VITALS: BP 126/72; PULSE 56; RESP 14; TEMP 36.8; O2SAT 97
[2022-01-02] MEDS: Lactated Ringers 1,000 ML 100 ML IVCONT (06:00)
[2022-01-02] MEDS: ondansetron HCL 4 MG/2 ML VIAL IVPUSH (06:00)
[2022-01-02 06:30] LABS: MANUAL DIFF FLAG NO
[2022-01-02 06:48] LABS: Basophils Percent Auto 0.1 % (0-2); Eosinophils Percent Auto 0.1 % (0-4); Hematocrit 33.9 % (37.0-47.0); Hemoglobin 11.5 g/dl (12.0-16.0); Imm Gran Abs Auto 0.04 X10*3/uL (0.00-0.03); Imm Gran Pct Auto 0.5 % (0.0-0.4); Lymphocytes Absolute Auto 2.3 X10*3/uL (1.2-4.9); Lymphocytes Percent Auto 26.5 % (20-40); Mean Corpuscular HGB Conc 33.9 g/dl (31.0-35.0); Mean Corpuscular Hemoglobin 31.1 pg (27.0-33.0); Mean Corpuscular Volume 91.6 fL (80.0-98.0); Mean Platelet Volume 10.5 fL (9.4-12.3); Monocytes Absolute Auto 0.7 X10*3/uL (0.1-1.2); Monocytes Percent Auto 8.6 % (2-11); Neutrophils Absolute Auto 5.5 x10*3/uL (2.0-8.3); Neutrophils Percent Auto 64.2 % (45-73); Platelet Count 215 X10*3/uL (160-400); White Blood Count 8.6 X10*3/uL (4.8-10.8)
[2022-01-02 06:50] LABS: Anion Gap 12 (12-20); Blood Urea Nitrogen 8 mg/dL (9-16); Calcium 8.7 mg/dL (8.4-10.2); Carbon Dioxide 22 mmol/L (22-29); Chloride 108 mmol/L (96-108); Estimated Glomerular Filt Rate > 60; Glucose Random 75 mg/dL (60-115); Potassium 4.1 mmol/L (3.3-5.1); Sodium 138 mmol/L (135-145)
[2022-01-02 07:27] VITALS: BP 133/68; PULSE 58; RESP 18; TEMP 36.6; O2SAT 96
[2022-01-02] MEDS: Famotidine/PF 20 MG/2 ML VIAL IVPUSH (08:40)
[2022-01-02] MEDS: Metoclopramide HCl 10 MG/2 ML VIAL IVPUSH (08:40)
--- NOTE | 2022-01-02 09:39 | MHC.CM.PN ---
CM attempted to meet with Patient but was told by RN that Patient has already left. Patient was medically cleared for dc to home today, self care.
--- NOTE | 2022-01-02 09:54 | PC.NURSE ---
patient alert and oriented,no pain reported,ivs out, understand discharge instructions.
--- NOTE | 2022-01-02 13:47 | HO.POSTANES ---
Post Anesthesia Evaluation Post Anesthesia Evaluation Vital Signs: Vital Signs Temp Pulse Resp BP Pulse Ox 01/02/22 07:27 97.9 F 58 18 133/68 96 01/02/22 04:00 98.3 F 56 14 126/72 97 Anesthesia: General Endotracheal-GETA Mental Status: Awake Pain Control: Satisfactory Nausea/Vomiting: None Hydration: Adequate Anesthesia-Related Issues: No Anes. Related Issues
== END 2022-01-02 09:55 | disposition home or self-care (01) ==
LOC: HO.SSS 10:06 → HO.S3 10:27
PROVIDERS: Nurse Practitioner; Physician Assistant Surgical; PCP Internal Medicine; Visit Provider Surgery
PROC: (CPT 43845; principal; 2022-01-01 07:30)
DX: E66.01 Morbid (severe) obesity due to excess calories (principal); Z68.39 Body mass index [BMI] 39.0-39.9, adult; I10 Essential (primary) hypertension; N20.0 Calculus of kidney; E11.9 Type 2 diabetes mellitus without complications; E61.1 Iron deficiency; Z79.899 Other long term (current) drug therapy; Z20.822 Contact with and (suspected) exposure to COVID-19
CPT/HCPCS: 43775; 43659; 36415; 80048; 80053; 80061; 81025; 82947; 83036; 83525; 84443; 85014; 85018; 85025; 85610; 85730; 86140; 86850; 86900; 86901; 87635; 88307; 88342; 99024; A4649; J0131; J0690; J1100; J1170; J2250; J2405; J2550; J2765; J3010

== ENCOUNTER → 2022-01-07 14:31 | Outpatient (BNVA) | payer OTHER, SELFPAY | PROVIDERS: Visit Provider Surgery | DX: Z13.89 Encounter for screening for other disorder (principal) ==

== ENCOUNTER → 2022-02-05 08:17 | Outpatient (BNVA) | payer OTHER, SELFPAY | PROVIDERS: Visit Provider Physician Assistant | DX: E66.9 Obesity, unspecified (principal) ==

== ENCOUNTER → 2022-03-11 15:00 | Outpatient (BNVA) | payer OTHER, SELFPAY | PROVIDERS: PCP Surgery; Referring Provider Surgery; Visit Provider Physician Assistant | DX: E66.9 Obesity, unspecified (principal); Z98.84 Bariatric surgery status ==

== ENCOUNTER 2022-07-22 09:39 | Outpatient (REF) | payer OTHER, SELFPAY ==
[2022-07-22 10:08] LABS: MANUAL DIFF FLAG NO
[2022-07-22 10:15] LABS: Basophils Percent Auto 0.5 % (0-2); Eosinophils Absolute Auto 0.1 X10*3/uL (0.0-0.4); Eosinophils Percent Auto 2.5 % (0-4); Hematocrit 36.1 % (37.0-47.0); Imm Gran Abs Auto 0.01 X10*3/uL (0.00-0.03); Imm Gran Pct Auto 0.2 % (0.0-0.4); Lymphocytes Absolute Auto 2.1 X10*3/uL (1.2-4.9); Lymphocytes Percent Auto 38.4 % (20-40); Mean Corpuscular HGB Conc 33.2 g/dl (31.0-35.0); Mean Corpuscular Hemoglobin 30.8 pg (27.0-33.0); Mean Corpuscular Volume 92.6 fL (80.0-98.0); Mean Platelet Volume 9.7 fL (9.4-12.3); Monocytes Absolute Auto 0.4 X10*3/uL (0.1-1.2); Monocytes Percent Auto 6.3 % (2-11); Neutrophils Absolute Auto 2.9 x10*3/uL (2.0-8.3); Neutrophils Percent Auto 52.1 % (45-73); Platelet Count 219 X10*3/uL (160-400); White Blood Count 5.5 X10*3/uL (4.8-10.8)
[2022-07-22 10:25] LABS: Estimated Average Glucose 94 mg/dL; Hemoglobin A1c % 4.9 %
[2022-07-22 10:54] LABS: Alanine Aminotransferase 12 U/L (0-31); Alkaline Phosphatase 65 U/L (39-117); Anion Gap 13 (12-20); Aspartate Amino Transferase 11 U/L (5-31); Bilirubin Total 0.9 mg/dL (0.0-1.0); Blood Urea Nitrogen 12 mg/dL (9-16); C Reactive Protein 0.16 mg/dL (< or = 0.50); Calcium 9.1 mg/dL (8.4-10.2); Carbon Dioxide 26 mmol/L (22-29); Chloride 104 mmol/L (96-108); Cholesterol 145 mg/dL; Estimated Glomerular Filt Rate > 60; Glucose Random 86 mg/dL (60-115); HDL Cholesterol 44 mg/dL; Iron 100 mcg/dL (30-160); LDL Cholesterol Calculated 91 mg/dl; Percent Iron Saturation 32 % (15-50); Potassium 4.4 mmol/L (3.3-5.1); Sodium 139 mmol/L (135-145); Total Iron Binding Capacity 316 mcg/dL (228-428); Total Protein 6.4 g/dL (6.5-8.0); Triglycerides 51 mg/dL; Unsaturated Iron Binding 216 ug/dL
[2022-07-22 11:16] LABS: Ferritin 14 ng/mL (10-122); Insulin 6 uU/mL (2-29); TSH reflex Free T4 0.81 uIU/mL (0.32-4.0); Vitamin D 25-OH Total 32.4 ng/mL (>30)
[2022-07-22 11:22] LABS: Folate 12.8 ng/mL (> or = 4.0); Vitamin B12 452 pg/mL (200-900)
[2022-07-24 14:57] LABS: Calcium (PTHI) 9.1 mg/dL (8.6-10.2); PTHI 24 pg/mL (16-77)
[2022-07-26 01:17] LABS: Zinc 75 mcg/dL (60-130)
[2022-07-27 18:47] LABS: Vitamin A 42 mcg/dL (38-98)
[2022-07-29 11:42] LABS: Vitamin B1 19 nmol/L (8-30)
== END 2022-07-22 09:40 | disposition home or self-care (01) ==
LOC: HO.LAB 09:39
PROVIDERS: Visit Provider Physician Assistant
DX: E11.9 Type 2 diabetes mellitus without complications (principal); E66.3 Overweight; Z98.84 Bariatric surgery status
CPT/HCPCS: 36415; 80053; 80061; 82306; 82607; 82728; 82746; 83036; 83525; 83540; 83970; 84425; 84443; 84590; 84630; 85025; 86140

== ENCOUNTER → 2022-11-28 13:52 | Outpatient (BNVA) | payer OTHER, SELFPAY | PROVIDERS: PCP Internal Medicine; Visit Provider Physician Assistant Surgical | DX: Z13.89 Encounter for screening for other disorder (principal) ==

== ENCOUNTER 2023-08-04 10:42 | Outpatient (AMB) | payer OTHER, SELFPAY ==
--- NOTE | 2023-08-04 10:11 | MHC.OFFVISWM ---
Intake VS Expanded 08/04/23 10:13 Height 5 ft 7 in Weight 233 lb BMI 36.5 Intake Visit Reasons: VIDEO PO LSG 12/22/21 Allergies No Known Allergies Allergy (Verified 11/28/22 13:57) Medication List - Last Reconciled 08/04/23 by ANA Aranda calcium citrate-vitamin D3 315 mg-5 mcg (200 unit) (Calcium Citrate + D) 1 tab PO BID vsubooaiwswm-onu-wisi-FA-vit K 45 mg iron- 800 mcg-120 mcg (Bariatric Multivitamins) caps PO HPI HPI Comments History of Present Illness Details This?is a?32?yo female who is s/p LSG 12/22/2021. Presents for 17 month post op visit. Weight at last visit on 11/28/2022 was 193.8 pounds with a BMI of 30.3, weight today is 233 pounds, representing a 39.2 pound weight gain with a BMI today of 36.5.? No complaints of nausea, emesis, abdominal pain or reflux, or constipation. Pt feels like she got off track with exercise and eating. Once half marathon training was done she had difficulty keeping a routine. Sustained an injury when training for her second half marathon. Cut back to 3 days a week of protein shakes instead of daily. Has more sweet cravings now, almost daily. Present meal plan includes: 1/2 scoop Pure Protein shake in 8oz Fairlife milk 5:30am-7am Zone bar 9am 1pm- 3 oz protein and 2 oz vegetable 4pm snack of ZP bar or cheese stick with almonds dinner 9-10pm shrimp or salmon with lentils, 3oz and 3oz sugar free popsicle after dinner Exercise routine includes: 10-15 miles a week, but stopped crosstraining and weight training [facility] Medical History (Updated 05/28/22 @ 15:35 by Blaire Sevilla PA-C) Obesity Nephrolithiasis Hypertension Morbid obesity Surgical History Hx of wisdom tooth extraction S/P laparoscopic sleeve gastrectomy Family History Mother Hypertension Migraines Father Hypertension Diabetes Brother Bipolar 1 disorder Social History Household Members: None Housing: Apartment Are you a primary care management coordinator to a significant other at home: No Do you presently have visiting nurse or other home services: No Alcohol intake: former Patient Tobacco Use Status: Never used Tobacco Assessment & Plan Assessment & Plan (1) S/P laparoscopic sleeve gastrectomy: Comment: 01/01/22 Code(s): Z98.84 - Bariatric surgery status (2) Obesity: Code(s): E66.9 - Obesity, unspecified Plan Adjustment to meal plan- no chickpea pasta, no granola, focus on protein and fruit/veg only. 6-8am Pure Protein 1 scoop with 8oz Fairlife milk 9-11am bar or Sudanese yogurt with carrots (13g) 1pm- lunch 6 forks/6 forks 5pm- can try Quest chips, does not want anything sweet, or Sudanese yogurt with savory seasonings/crunchy veg, or cheese stick with turkey pepperoni 7pm- dinner 6 forks/6 forks Encouraged resuming Peloton exercise for now with goal of 2000 otilio burned per week. Labs ordered. RTC 1 month, encouraged pt to text me between appts with any questions. Patient is obese and is not considered stable at this time. I spent a total of 30 minutes reviewing/updating records, examining the patient and counseling the patient on weight management as detailed above. Orders: Orders Lipid Panel Today Z98.84 - Bariatric surgery status Comprehensive Met. Panel Today Z98.84 - Bariatric surgery status Vitamin B1 Today Z98.84 - Bariatric surgery status C Reactive Protein Today Z98.84 - Bariatric surgery status Ferritin Today Z98.84 - Bariatric surgery status PTHI Today Z98.84 - Bariatric surgery status Vitamin D 25-OH Total Today Z98.84 - Bariatric surgery status Hemoglobin A1c Today Z98.84 - Bariatric surgery status Insulin Today Z98.84 - Bariatric surgery status IRON PROFILE Today Z98.84 - Bariatric surgery status Complete Blood Count Auto Diff Today Z98.84 - Bariatric surgery status Vitamin B12 and Folate Today Z98.84 - Bariatric surgery status Zinc Today Z98.84 - Bariatric surgery status Vitamin A Today Z98.84 - Bariatric surgery status TSH reflex Free T4 Today Z98.84 - Bariatric surgery status Telehealth Telehealth Location of provider rendering services: practice address Location of patient: address on file Patient Identification confirmed using: Name, : Yes Telehealth method: video Patient verbally consented to treatment: Yes Patient verbally consented to billing insurance company: Yes Patient informed of any privacy concerns related to visit: Yes Coding Level of Care Code Tele Est Pt Level 4 (42174) Diagnoses S/P laparoscopic sleeve gastrectomy Z98.84 Obesity E66.9
[2023-08-04 10:13] VITALS: BMI 36.5
== END 2023-08-04 10:47 | disposition home or self-care (01) ==
LOC: HO.HBS 10:42
PROVIDERS: PCP Internal Medicine; Visit Provider Physician Assistant Surgical
DX: E66.9 Obesity, unspecified (principal); Z68.36 Body mass index [BMI] 36.0-36.9, adult; Z90.3 Acquired absence of stomach [part of]; Z98.84 Bariatric surgery status
CPT/HCPCS: 99214

== ENCOUNTER → 2023-08-04 10:42 | Outpatient (BNVA) | payer OTHER, SELFPAY | PROVIDERS: PCP Internal Medicine; Visit Provider Physician Assistant Surgical | DX: Z98.84 Bariatric surgery status (principal) ==

== ENCOUNTER → 2023-09-03 11:52 | Outpatient (BNVA) | payer OTHER, SELFPAY | PROVIDERS: PCP Internal Medicine; Visit Provider Physician Assistant Surgical ==

== ENCOUNTER 2023-09-08 08:55 | Outpatient (REF) | payer OTHER, SELFPAY ==
[2023-09-08 09:29] LABS: MANUAL DIFF FLAG NO
[2023-09-08 09:35] LABS: Basophils Percent Auto 0.2 % (0-2); Eosinophils Absolute Auto 0.1 X10*3/uL (0.0-0.4); Eosinophils Percent Auto 1.7 % (0-4); Hematocrit 36.7 % (37.0-47.0); Hemoglobin 12.6 g/dl (12.0-16.0); Imm Gran Abs Auto 0.01 X10*3/uL (0.00-0.03); Imm Gran Pct Auto 0.2 % (0.0-0.4); Lymphocytes Absolute Auto 2.2 X10*3/uL (1.2-4.9); Lymphocytes Percent Auto 40.8 % (20-40); Mean Corpuscular HGB Conc 34.3 g/dl (31.0-35.0); Mean Corpuscular Hemoglobin 30.4 pg (27.0-33.0); Mean Corpuscular Volume 88.6 fL (80.0-98.0); Mean Platelet Volume 9.4 fL (9.4-12.3); Monocytes Absolute Auto 0.3 X10*3/uL (0.1-1.2); Monocytes Percent Auto 6.2 % (2-11); Neutrophils Absolute Auto 2.7 x10*3/uL (2.0-8.3); Neutrophils Percent Auto 50.9 % (45-73); Platelet Count 212 X10*3/uL (160-400); Red Blood Count 4.14 X10*6/uL (4.20-5.50); Red Cell Distribution Width 11.6 % (11.0-16.0); White Blood Count 5.3 X10*3/uL (4.8-10.8)
[2023-09-08 09:47] LABS: Estimated Average Glucose 103 mg/dL; Hemoglobin A1c % 5.2 % (<6.0)
[2023-09-08 10:18] LABS: Alanine Aminotransferase 9 U/L (0-31); Albumin Level 3.9 g/dL (3.5-5.0); Alkaline Phosphatase 53 U/L (39-117); Anion Gap 7 (12-20); Aspartate Amino Transferase 14 U/L (5-31); Bilirubin Total 0.7 mg/dL (0.0-1.0); Blood Urea Nitrogen 11 mg/dL (9-16); C Reactive Protein < 0.10 mg/dL (< or = 0.50); Carbon Dioxide 27 mmol/L (22-29); Chloride 107 mmol/L (96-108); Cholesterol 171 mg/dL (<200); Estimated Glomerular Filt Rate > 60; Glucose Random 91 mg/dL (60-115); HDL Cholesterol 38 mg/dL (>40); Iron 128 mcg/dL (30-160); LDL Cholesterol Calculated 112 mg/dL (<100); Percent Iron Saturation 46 % (15-50); Potassium 3.9 mmol/L (3.3-5.1); Sodium 137 mmol/L (135-145); Total Iron Binding Capacity 277 mcg/dL (228-428); Total Protein 6.7 g/dL (6.5-8.0); Triglycerides 105 mg/dL (<150); Unsaturated Iron Binding 149 ug/dL
[2023-09-08 10:39] LABS: Ferritin 21 ng/mL (10-122); Insulin 10 uU/mL (2-29); TSH reflex Free T4 0.89 uIU/mL (0.32-4.0); Vitamin D 25-OH Total 27.8 ng/mL (>30)
[2023-09-08 10:45] LABS: Folate 11.2 ng/mL (> or = 4.0); Vitamin B12 542 pg/mL (200-900)
[2023-09-11 16:28] LABS: Zinc 66 mcg/dL (60-130)
[2023-09-11 16:54] LABS: Vitamin B1 16 nmol/L (8-30)
[2023-09-12 17:19] LABS: Vitamin A 45 mcg/dL (38-98)
== END 2023-09-08 08:56 | disposition home or self-care (01) ==
LOC: HO.LAB 08:55
PROVIDERS: Visit Provider Physician Assistant Surgical
DX: Z98.84 Bariatric surgery status (principal); K91.2 Postsurgical malabsorption, not elsewhere classified
CPT/HCPCS: 36415; 80053; 80061; 82306; 82607; 82728; 82746; 83036; 83525; 83540; 84425; 84443; 84590; 84630; 85025; 86140

== ENCOUNTER 2023-11-26 10:49 | Outpatient (AMB) | payer OTHER, SELFPAY ==
--- NOTE | 2023-11-26 10:33 | MHC.OFFVISWM ---
Intake VS Expanded 11/26/23 10:36 Height 5 ft 7 in Weight 248 lb BMI 38.8 Intake Visit Reasons: telephone PO LSG 12/22/21 Allergies No Known Allergies Allergy (Verified 11/28/22 13:57) Medication List - Last Reconciled 11/26/23 by ANA Aranda calcium citrate-vitamin D3 315 mg-5 mcg (200 unit) (Calcium Citrate + D) 1 tab PO BID cholecalciferol (vitamin D3) 50 mcg PO DAILY cvmumjbcbntd-icr-thsg-FA-vit K 45 mg iron- 800 mcg-120 mcg (Bariatric Multivitamins) caps PO HPI HPI Comments History of Present Illness Details This?is a?33?yo female who is s/p LSG 12/22/2021. Presents for 1 year 1 month post op visit. Weight at last visit on 09/03/2023 was 230.8 pounds with a BMI of 36.2, weight today is 248 pounds, representing a 17.2 pound weight gain with a BMI today of 38.8.? No complaints of nausea, emesis, abdominal pain or reflux, or constipation. Pt had requested a letter in support of starting [employer] as her PCP was trying to get her approved, still waiting on a decision. Was on vacation for 2 weeks which changed her routine, less exercise, eating foods off plan. Difficulty getting back on track. Pt recognizes my relationship with food is really unhealthy. Present meal plan includes: 6-8am Pure Protein 1 scoop with 8oz Fairlife milk 9-11am bar or Mexican yogurt with carrots (13g) 1pm- lunch 6 forks/6 forks 5pm- can try Quest chips, does not want anything sweet, or Mexican yogurt with savory seasonings/crunchy veg, or cheese stick with turkey pepperoni 7pm- dinner 6 forks/6 forks (salmon with veg, or chicken) Sometimes has a snack of pistachios, sugar free popsicles after dinner. Exercise routine includes: cardio Tues/Thurs, lap swimming M/W/F [facility] Medical History (Updated 05/28/22 @ 15:35 by Blaire Sevilla PA-C) Obesity Nephrolithiasis Hypertension Morbid obesity Surgical History Hx of wisdom tooth extraction S/P laparoscopic sleeve gastrectomy Family History Mother Hypertension Migraines Father Hypertension Diabetes Brother Bipolar 1 disorder Social History Household Members: None Housing: Apartment Are you a primary continuum of care manager to a significant other at home: No Do you presently have visiting nurse or other home services: No Alcohol intake: former Patient Tobacco Use Status: Never used Tobacco Assessment & Plan Assessment & Plan (1) S/P laparoscopic sleeve gastrectomy: Comment: 01/01/22 Code(s): Z98.84 - Bariatric surgery status (2) Obesity: Code(s): E66.9 - Obesity, unspecified Plan Pt recognizes that she is struggling with the mental piece of weight loss, all or nothing thinking, discouragement etc so I suggested a visit with to help her reframe her thought process around food and try to develop a healthier relationship with it. RTC 3 months to see me, next available with . Patient is obese and is not considered stable at this time. I spent a total of 30 minutes reviewing/updating records, examining the patient and counseling the patient on weight management as detailed above. Telehealth Telehealth Location of provider rendering services: practice address Location of patient: address on file Patient Identification confirmed using: Name, : Yes Telehealth method: voice only Patient verbally consented to treatment: Yes Patient verbally consented to billing insurance company: Yes Patient informed of any privacy concerns related to visit: Yes Minutes spent on Phone/Video with Pt.: 20 Coding Level of Care Code Tele Est Pt Level 4 (32076) Diagnoses S/P laparoscopic sleeve gastrectomy Z98.84 Obesity E66.9
[2023-11-26 10:36] VITALS: BMI 38.8
== END 2023-11-26 10:58 | disposition home or self-care (01) ==
LOC: HO.HBS 10:49
PROVIDERS: Visit Provider Physician Assistant Surgical
DX: E66.9 Obesity, unspecified (principal); Z68.38 Body mass index [BMI] 38.0-38.9, adult; Z90.3 Acquired absence of stomach [part of]; Z98.84 Bariatric surgery status
CPT/HCPCS: 99213

== ENCOUNTER → 2023-11-26 10:49 | Outpatient (BNVA) | payer OTHER, SELFPAY | PROVIDERS: Visit Provider Physician Assistant Surgical ==

== ENCOUNTER 2023-12-09 14:07 | Outpatient (AMB) | payer OTHER, SELFPAY ==
--- NOTE | 2023-12-09 13:35 | MHC.WMTHER ---
Intake Intake Visit Reasons: VIDEO PO LSG 12/22/21 Allergies No Known Allergies Allergy (Verified 11/28/22 13:57) [facility] Medical History (Updated 12/18/23 @ 13:22 by Keisha Warren) Obesity Nephrolithiasis Hypertension Morbid obesity Surgical History Hx of wisdom tooth extraction S/P laparoscopic sleeve gastrectomy Family History Mother Hypertension Migraines Father Hypertension Diabetes Brother Bipolar 1 disorder Social History Household Members: None Housing: Apartment Are you a primary intensive care medicine specialist to a significant other at home: No Do you presently have visiting nurse or other home services: No Alcohol intake: former Patient Tobacco Use Status: Never used Tobacco Behavioral Health Assessment Weight Management Therapy Therapy Notes Details Patient is two years post gastric sleeve surgery. She was referred due to weight gain and poor relationship with food. She stopped exercising and eating healthy. No hx of mental health issues or drug or alcohol issues. Presenting Concerns Referral Source provider Reason for referral weight gain and emotional eating Precipitating Event obesity Living Situation Current Living Situation Rent At risk of losing current housing? No Satisfied with current living situation? Yes Comments Pt lives alone with her dog. Food/Weight/Diet Expectations of change weight loss and maintenance History/Relationship with food will often comfort foods when she is stressed rather than healthy foods that she buys. She stated that she has a poor rel. with food, all or nothing mindset. She will have a protein shake for breakfast and then a normal lunch. She has been working on the PA who put her on a restrictive diet however she feels like it is making things worse for her, now overeating even more. History/Relationship with weight Pt stated that she played sports and was very active until she graduated college stopped playing sports. 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 History/Relationship with dieting LSG in 2021 down to 184lbs. She is currently 20lbs pounds away from being to her pre surgery weight. Social History Family history and relationship Pt stated that both her parents have had weight loss surgery and did not do well, they are on weight loss medications now. Education Highest grade completed medical school, residency Preferred learning style Auditory, Verbal, Written, Learn by doing and Visual Currently enrolled in educational program? Yes Interested in further educational program? Yes Educational Interests/Skills She just finished her residency and Employment Employment Status Mobile Marketing Specialist Financial Situation Describe current financial situation Comfortable Financial assistance? None Service Service? No Assessment & Plan Assessment & Plan (1) Adjustment disorder, unspecified: Code(s): F43.20 - Adjustment disorder, unspecified (2) S/P laparoscopic sleeve gastrectomy: Comment: 01/01/22 Code(s): Z98.84 - Bariatric surgery status (3) Obesity: Code(s): E66.9 - Obesity, unspecified Plan Patient is two years post gastric sleeve surgery. She has gained sig. weight since her lowest weight post surgery due to over eating, stress eating, and also stopped exercising. 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 Telehealth Telehealth Location of provider rendering services: other Location of patient: other Patient Identification confirmed using: Name, : Yes Telehealth method: voice only Patient verbally consented to billing insurance company: Yes Patient informed of any privacy concerns related to visit: Yes Minutes spent on Phone/Video with Pt.: 50 Coding Level of Care Code Tele Psy Diag Tej (61343) Diagnoses Adjustment disorder, unspecified F43.20 S/P laparoscopic sleeve gastrectomy Z98.84 Obesity E66.9 Time Spent (min) 50
== END 2023-12-09 15:46 | disposition home or self-care (01) ==
LOC: HO.HBST 14:08
PROVIDERS: Visit Provider Counselor Mental Health
DX: F43.20 Adjustment disorder, unspecified (principal); Z98.84 Bariatric surgery status; E66.9 Obesity, unspecified
CPT/HCPCS: 90791

== ENCOUNTER → 2023-12-09 14:07 | Outpatient (BNVA) | payer OTHER, SELFPAY | PROVIDERS: Visit Provider Counselor Mental Health ==

== ENCOUNTER 2023-12-16 20:18 | Outpatient (AMB) | payer OTHER, SELFPAY ==
--- NOTE | 2023-12-18 13:12 | MHC.WMTHER ---
Intake Intake Visit Reasons: group therapy Allergies No Known Allergies Allergy (Verified 11/28/22 13:57) [facility] Medical History (Updated 12/18/23 @ 13:22 by Keisha Warren) Obesity Nephrolithiasis Hypertension Morbid obesity Surgical History Hx of wisdom tooth extraction S/P laparoscopic sleeve gastrectomy Family History Mother Hypertension Migraines Father Hypertension Diabetes Brother Bipolar 1 disorder Social History Household Members: None Housing: Apartment Are you a primary home health care case manager to a significant other at home: No Do you presently have visiting nurse or other home services: No Alcohol intake: former Patient Tobacco Use Status: Never used Tobacco Behavioral Health Assessment Weight Management Therapy Therapy Notes Details Group therapy session on self discipline versus motivation. Patient was engaged and shared her journey with others. Assessment & Plan Assessment & Plan (1) Adjustment disorder, unspecified: Code(s): F43.20 - Adjustment disorder, unspecified (2) S/P laparoscopic sleeve gastrectomy: Comment: 01/01/22 Code(s): Z98.84 - Bariatric surgery status (3) Obesity: Code(s): E66.9 - Obesity, unspecified Plan Patient is two years post gastric sleeve surgery. She has gained sig. weight since her lowest weight post surgery due to over eating, stress eating, and also stopped exercising. 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 Coding Level of Care Code Grp Psych (99099) Diagnoses Adjustment disorder, unspecified F43.20 S/P laparoscopic sleeve gastrectomy Z98.84 Obesity E66.9 Time Spent (min) 65
== END 2023-12-18 13:08 | disposition home or self-care (01) ==
LOC: HO.HBST 20:18
PROVIDERS: Visit Provider Counselor Mental Health
DX: F43.20 Adjustment disorder, unspecified (principal); E66.9 Obesity, unspecified; Z68.38 Body mass index [BMI] 38.0-38.9, adult; Z98.84 Bariatric surgery status

== ENCOUNTER → 2023-12-16 20:18 | Outpatient (BNVA) | payer OTHER, SELFPAY | PROVIDERS: Visit Provider Counselor Mental Health | DX: E66.9 Obesity, unspecified (principal); F43.20 Adjustment disorder, unspecified; Z98.84 Bariatric surgery status | CPT/HCPCS: 90853 ==

== ENCOUNTER 2023-12-30 11:45 | Outpatient (AMB) | payer OTHER, SELFPAY ==
--- NOTE | 2023-12-30 11:31 | A.OFFWM_ITS ---
Intake Intake Visit Reasons: (TV) PO LSG 12/22/21 Allergies No Known Allergies Allergy (Verified 11/28/22 13:57) PFSH Medical History (Updated 12/18/23 @ 13:22 by Keisha Warren) Obesity Nephrolithiasis Hypertension Morbid obesity Surgical History Hx of wisdom tooth extraction S/P laparoscopic sleeve gastrectomy Family History Mother Hypertension Migraines Father Hypertension Diabetes Brother Bipolar 1 disorder Social History Household Members: None Housing: Apartment Are you a primary urgent care nurse practitioner to a significant other at home: No Do you presently have visiting nurse or other home services: No Alcohol intake: former Patient Tobacco Use Status: Never used Tobacco Behavioral Health Assessment Weight Management Therapy Therapy Notes Details Goals: focusing on nutrition, if I cannot get to the gym, that does not mean I through it away and not do anything . Also if I cannot workout 6 days a week does not mean working out 3 days is not good for me, not living in extremes . Has always been all or nothing. Pt stated that she would like to establish a routine, meal planning, and working out. She stated that she would like to work on her mindset and find a healthy balance in her life. Assessment & Plan Assessment & Plan (1) Adjustment disorder, unspecified: Code(s): F43.20 - Adjustment disorder, unspecified (2) S/P laparoscopic sleeve gastrectomy: Comment: 01/01/22 Code(s): Z98.84 - Bariatric surgery status (3) Obesity: Code(s): E66.9 - Obesity, unspecified Plan Patient is two years post gastric sleeve surgery. She has gained sig. weight since her lowest weight post surgery due to over eating, stress eating, and also stopped exercising. 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 She found the group helpful last week and would like to have a few more individual appointments as well. Telehealth Telehealth Location of provider rendering services: other Location of patient: other Patient Identification confirmed using: Name, : Yes Telehealth method: voice only Patient verbally consented to treatment: Yes Patient verbally consented to billing insurance company: Yes Patient informed of any privacy concerns related to visit: Yes Minutes spent on Phone/Video with Pt.: 30 Coding Level of Care Code Tele Psytx 30 mins (44052) Diagnoses Adjustment disorder, unspecified F43.20 S/P laparoscopic sleeve gastrectomy Z98.84 Obesity E66.9 Time Spent (min) 30
== END 2023-12-30 11:55 | disposition home or self-care (01) ==
LOC: HO.HBST 11:45
PROVIDERS: Visit Provider Counselor Mental Health
DX: F43.20 Adjustment disorder, unspecified (principal); Z98.84 Bariatric surgery status; E66.9 Obesity, unspecified
CPT/HCPCS: 90832

== ENCOUNTER → 2023-12-30 11:45 | Outpatient (BNVA) | payer OTHER, SELFPAY | PROVIDERS: Visit Provider Counselor Mental Health ==

== ENCOUNTER 2024-01-06 17:15 | Outpatient (AMB) | payer OTHER, SELFPAY ==
--- NOTE | 2024-05-04 16:07 | MHC.WMTHER ---
Intake Intake Visit Reasons: Group Therapy Allergies No Known Allergies Allergy (Verified 11/28/22 13:57) [facility] Medical History (Updated 12/18/23 @ 13:22 by Keisha Warren) Obesity Nephrolithiasis Hypertension Morbid obesity Surgical History Hx of wisdom tooth extraction S/P laparoscopic sleeve gastrectomy Family History Mother Hypertension Migraines Father Hypertension Diabetes Brother Bipolar 1 disorder Social History Household Members: None Housing: Apartment Are you a primary rn intensive care unit to a significant other at home: No Do you presently have visiting nurse or other home services: No Alcohol intake: former Patient Tobacco Use Status: Never used Tobacco Behavioral Health Assessment Weight Management Therapy Therapy Notes Details Group therapy session, participants discussed struggles, improvements, and supported each other. Topic was on mindfulness and anxiety reduction techniques. Pt was engaged and participated appropriately. Assessment & Plan Assessment & Plan (1) S/P laparoscopic sleeve gastrectomy: Comment: 01/01/22 Code(s): Z98.84 - Bariatric surgery status (2) Obesity: Code(s): E66.9 - Obesity, unspecified (3) Adjustment disorder, unspecified: Code(s): F43.20 - Adjustment disorder, unspecified Plan Patient is two years post gastric sleeve surgery. She has gained sig. weight since her lowest weight post surgery due to over eating, stress eating, and also stopped exercising. 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 She found the group helpful last week and would like to have a few more individual appointments as well. Coding Level of Care Code Grp Psych ([id number]) Diagnoses S/P laparoscopic sleeve gastrectomy Z98.84 Obesity E66.9 Adjustment disorder, unspecified F43.20 Time Spent (min) 60
== END 2024-01-06 18:15 | disposition home or self-care (01) ==
PROVIDERS: Visit Provider Counselor Mental Health
DX: F43.20 Adjustment disorder, unspecified (principal); E66.9 Obesity, unspecified; Z68.36 Body mass index [BMI] 36.0-36.9, adult; Z98.84 Bariatric surgery status
CPT/HCPCS: 99499

== ENCOUNTER → 2024-01-06 20:36 | Outpatient (BNVA) | payer OTHER, SELFPAY | PROVIDERS: Visit Provider Counselor Mental Health ==

== ENCOUNTER 2024-01-13 17:15 | Outpatient (AMB) | payer OTHER, SELFPAY ==
--- NOTE | 2024-05-04 15:54 | A.OFFWM_ITS ---
Intake Intake Visit Reasons: Group Therapy Allergies No Known Allergies Allergy (Verified 11/28/22 13:57) [facility] Medical History (Updated 12/18/23 @ 13:22 by Keisha Warren) Obesity Nephrolithiasis Hypertension Morbid obesity Surgical History Hx of wisdom tooth extraction S/P laparoscopic sleeve gastrectomy Family History Mother Hypertension Migraines Father Hypertension Diabetes Brother Bipolar 1 disorder Social History Household Members: None Housing: Apartment Are you a primary home health care worker to a significant other at home: No Do you presently have visiting nurse or other home services: No Alcohol intake: former Patient Tobacco Use Status: Never used Tobacco Behavioral Health Assessment Weight Management Therapy Therapy Notes Details Group therapy session, participants discussed struggles, improvements, and supported each other. Topic was on motivation and making new habits. Pt was engaged and participated appropriately. Assessment & Plan Assessment & Plan (1) Adjustment disorder, unspecified: Code(s): F43.20 - Adjustment disorder, unspecified (2) S/P laparoscopic sleeve gastrectomy: Comment: 01/01/22 Code(s): Z98.84 - Bariatric surgery status (3) Obesity: Code(s): E66.9 - Obesity, unspecified Plan Patient is two years post gastric sleeve surgery. She has gained sig. weight since her lowest weight post surgery due to over eating, stress eating, and also stopped exercising. 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 She found the group helpful last week and would like to have a few more individual appointments as well. Coding Level of Care Code Grp Psych ([id number]) Diagnoses Adjustment disorder, unspecified F43.20 S/P laparoscopic sleeve gastrectomy Z98.84 Obesity E66.9 Time Spent (min) 60
== END 2024-01-13 18:15 | disposition home or self-care (01) ==
PROVIDERS: Visit Provider Counselor Mental Health
DX: F43.20 Adjustment disorder, unspecified (principal); Z98.84 Bariatric surgery status; E66.9 Obesity, unspecified; Z68.36 Body mass index [BMI] 36.0-36.9, adult
CPT/HCPCS: 99499

== ENCOUNTER → 2024-01-13 20:36 | Outpatient (BNVA) | payer OTHER, SELFPAY | PROVIDERS: Visit Provider Counselor Mental Health ==

== ENCOUNTER 2024-01-27 17:15 | Outpatient (AMB) | payer OTHER, SELFPAY ==
--- NOTE | 2024-05-02 16:02 | MHC.WMTHER ---
Intake Intake Visit Reasons: Group Therapy Allergies No Known Allergies Allergy (Verified 11/28/22 13:57) [facility] Medical History (Updated 12/18/23 @ 13:22 by Keisha Warren) Obesity Nephrolithiasis Hypertension Morbid obesity Surgical History Hx of wisdom tooth extraction S/P laparoscopic sleeve gastrectomy Family History Mother Hypertension Migraines Father Hypertension Diabetes Brother Bipolar 1 disorder Social History Household Members: None Housing: Apartment Are you a primary transitional care nurse to a significant other at home: No Do you presently have visiting nurse or other home services: No Alcohol intake: former Patient Tobacco Use Status: Never used Tobacco Behavioral Health Assessment Weight Management Therapy Therapy Notes Details Group therapy session on building and improving a healthy relationship with food. Patient was engaged, shared appropriately, and helped support others. Assessment & Plan Assessment & Plan (1) Adjustment disorder, unspecified: Code(s): F43.20 - Adjustment disorder, unspecified (2) S/P laparoscopic sleeve gastrectomy: Comment: 01/01/22 Code(s): Z98.84 - Bariatric surgery status (3) Obesity: Code(s): E66.9 - Obesity, unspecified Plan Patient is two years post gastric sleeve surgery. She has gained sig. weight since her lowest weight post surgery due to over eating, stress eating, and also stopped exercising. 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 She found the group helpful last week and would like to have a few more individual appointments as well. Coding Level of Care Code Grp Psych (48803) Diagnoses Adjustment disorder, unspecified F43.20 S/P laparoscopic sleeve gastrectomy Z98.84 Obesity E66.9 Time Spent (min) 60
== END 2024-01-27 18:15 | disposition home or self-care (01) ==
PROVIDERS: Visit Provider Counselor Mental Health
DX: F43.20 Adjustment disorder, unspecified (principal); Z98.84 Bariatric surgery status; E66.9 Obesity, unspecified
CPT/HCPCS: 99499

== ENCOUNTER → 2024-01-27 20:17 | Outpatient (BNVA) | payer OTHER, SELFPAY | PROVIDERS: Visit Provider Counselor Mental Health ==

== ENCOUNTER 2024-02-01 10:14 | Outpatient (AMB) | payer OTHER, SELFPAY ==
--- NOTE | 2024-02-01 10:20 | MHC.WMTHER ---
Intake Intake Visit Reasons: (TV) PO LSG 12/22/21 Allergies No Known Allergies Allergy (Verified 11/28/22 13:57) [facility] Medical History (Updated 12/18/23 @ 13:22 by Keisha Warren) Obesity Nephrolithiasis Hypertension Morbid obesity Surgical History Hx of wisdom tooth extraction S/P laparoscopic sleeve gastrectomy Family History Mother Hypertension Migraines Father Hypertension Diabetes Brother Bipolar 1 disorder Social History Household Members: None Housing: Apartment Are you a primary pediatric acute care unit nurse to a significant other at home: No Do you presently have visiting nurse or other home services: No Alcohol intake: former Patient Tobacco Use Status: Never used Tobacco Behavioral Health Assessment Weight Management Therapy Therapy Notes Details Today reported working on all or nothing mondset last couple of weeks. 20 minworkout is better than none at all. Currently on medication for weight loss which has helped her reduce her appetite and think about food less. 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 Aknowledges that these type of life changes is what leads to her falling off track. Is hoping to continue using [employer] as a tool to help her transition. Previous Goals: focusing on nutrition, if I cannot get to the gym, that does not mean I through it away and not do anything . Also if I cannot workout 6 days a week does not mean working out 3 days is not good for me, not living in extremes . Has always been all or nothing. Pt stated that she would like to establish a routine, meal planning, and working out. She stated that she would like to work on her mindset and find a healthy balance in her life. Assessment & Plan Assessment & Plan (1) Adjustment disorder, unspecified: Code(s): F43.20 - Adjustment disorder, unspecified (2) S/P laparoscopic sleeve gastrectomy: Comment: 01/01/22 Code(s): Z98.84 - Bariatric surgery status (3) Obesity: Code(s): E66.9 - Obesity, unspecified Plan Patient is two years post gastric sleeve surgery. She has gained sig. weight since her lowest weight post surgery due to over eating, stress eating, and also stopped exercising. 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 She found the group helpful last week and would like to have a few more individual appointments as well. Telehealth Telehealth Telehealth Platform: Telephone Location of provider rendering services: other Location of patient: address on file Patient Identification confirmed using: Name, : Yes Telehealth method: voice only Patient verbally consented to treatment: Yes Patient verbally consented to billing insurance company: Yes Patient informed of any privacy concerns related to visit: Yes Minutes spent on Phone/Video with Pt.: 25 Coding Level of Care Code Tele Psytx 30 mins (52057) Diagnoses Adjustment disorder, unspecified F43.20 S/P laparoscopic sleeve gastrectomy Z98.84 Obesity E66.9 Time Spent (min) 25
== END 2024-02-01 10:30 | disposition home or self-care (01) ==
LOC: HO.HBST 10:14
PROVIDERS: Visit Provider Counselor Mental Health
DX: F43.20 Adjustment disorder, unspecified (principal); Z98.84 Bariatric surgery status; E66.9 Obesity, unspecified
CPT/HCPCS: 90832

== ENCOUNTER → 2024-02-01 10:14 | Outpatient (BNVA) | payer OTHER, SELFPAY | PROVIDERS: Visit Provider Counselor Mental Health ==